=== PATIENT | female | born 1960 | race Caucasian/White ===

== ENCOUNTER → 2016-10-19 | Outpatient (CLI) | payer BC ==
[2016-06-17 11:52] VITALS: BP 145/65
[~2016-10-19] MED LIST: ASPI81TA2 PO; ATORVASTATIN CA80 MG PO; LEVO40CA PO; LISI-338 PO; METO25TA9 PO; OXYC-323 PO; PRAS10TA9 PO
--- NOTE | 2016-10-20 10:31 | RAD ---
PROCEDURE MR of the right ankle HISTORY Medial right ankle pain for 1 week. No known injury. TECHNIQUE Routine multiplanar sequences are obtained. COMPARISON None FINDINGS The peroneal tendons are intact. The anterior talofibular ligament is slightly irregular and bowed, compatible with scarring from prior injury. Calcaneofibular ligament also demonstrates some scarring as does the posterior talofibular ligament. No acute rupture. Anterior inferior tibiofibular ligament intact. Posterior tibial tendon demonstrates tendinosis at the navicular attachment with mild thickening and signal. No rupture. Minimal surrounding fluid. The flexor tendons appear intact with minimal fluid. Sprain/scarring of the medial deltoid ligament. Anterior tibial and extensor tendons are intact. Achilles tendon is intact. The plantar aponeurosis is only partially included but there is some thickening and mild low signal within the aponeurosis at the calcaneal origin compatible with mild scarring or chronic plantar fasciitis. Small subjacent enthesophyte. Subtalar joints are patent. Tarsal sinus intact. Talar dome intact. Trace fluid in the posterior subtalar joint. No large joint effusion. No bone lesion or acute fracture. Mild soft tissue edema around the ankle. IMPRESSION 1. Posterior tibial tendinosis or tenosynovitis. 2. Lateral ankle ligaments scarring compatible with prior injury. 3. Medial deltoid ligament sprain or scarring. 4. Mild chronic appearing plantar fasciitis. Electronically signed by: Kimani Hector MD (October 20, 2016 10:29:53)
== END | disposition home or self-care (01) ==
LOC: MRI 10:43
PROVIDERS: ATTEND Physician Assistant Medical
DX: M25.571 Pain in right ankle and joints of right foot (principal)
CPT/HCPCS: 73721

== ENCOUNTER → 2019-03-14 | Outpatient (CLI) | payer BC ==
[2016-06-17 11:52] VITALS: BP 145/65
[~2019-03-14] MED LIST changes: +ASPI-630 PO; -ASPI81TA2 PO; +METO-239 PO; -METO25TA9 PO; -OXYC-323 PO; +OXYC1TAB15 PO
--- NOTE | 2019-03-14 15:37 | RAD ---
EXAM: Brain MRI without contrast. HISTORY: Dizziness. TECHNIQUE: Multiplanar, multisequence magnetic resonance imaging of the brain was performed without contrast. COMPARISON: None. FINDINGS: There is no restricted diffusion to suggest acute or subacute infarction. There is no susceptibility effect to suggest hemorrhage. There is no mass effect or midline shift. There is no hydrocephalus. There are few scattered foci of T2/FLAIR hyperintensity within the cerebral white matter. There is mild cerebral volume loss. The orbits are unremarkable. There is moderate sphenoid sinus because of thickening. The mastoid air cells are clear. There are normal flow voids within the cerebral vessels. There is no suspicious calvarial lesion. IMPRESSION: 1. Few focal areas of T2/FLAIR hyperintensity within the cerebral white matter. This is most commonly due to chronic small vessel disease in patients of this age. The possibility that a small focus of signal change within the posterior left cerebral periventricular white matter is due to chronic demyelination is not excluded given the configuration and location of this lesion. 2. No acute intracranial finding. Electronically signed by: Yesi Niño MD (03/14/2019 3:35 PM) [id number]
== END | disposition home or self-care (01) ==
LOC: MRI 14:14
PROVIDERS: ATTEND Physician Assistant Medical
DX: R42 Dizziness and giddiness (principal)
CPT/HCPCS: 70551

== ENCOUNTER → 2021-01-25 | Outpatient (CLI) | payer BC ==
[2016-06-17 11:52] VITALS: BP 145/65
[~2021-01-25] MED LIST changes: -LISI-338 PO; +LISI-517 PO
--- NOTE | 2021-01-25 11:52 | KCIC ---
Exam Date: 01/25/2021 10:28 AM MRI LEFT LOWER EXTREMITY JOINT WITHOUT Indication: Reason: LESION OF BONE OF KNEE / Spl. Instructions: / History: Left knee trauma in recen t weeks. Pain is medial.. TECHNIQUE: Routine multiplanar MR imaging of the knee was performed without contrast. COMPARISON: Radiographs from January 18, 2021 FINDINGS: There is a horizontal tear involving the body and posterior horn of the medial meniscus extending to the intra-articular surface. The lateral meniscus is intact and within normal limits for age. The anterior cruciate ligament, posterior cruciate ligament, medial collateral ligament, and lateral collateral ligament complex are intact. Patellofemoral extensor mechanism and popliteus tendon are w ithin normal limits. Small full-thickness chondral defects are seen in the patellofemoral compartment with mild subchondra l degenerative marrow signal. Partial thickness chondral loss is seen in the medial compartment. Ca rtilage in lateral compartment is intact. Bone marrow demonstrates benign signal on all sequences. No acute fracture is seen. Small osteophyt es are noted. Physiologic joint fluid is present. There is no popliteal cyst. IMPRESSION: Medial meniscal tear as described. Mild degenerative changes noted, with small focal full-thickness chondral defects in the patellofemor al compartment. The questioned low-grade cartilaginous lesion in the distal femoral shaft seen on recent radiographs is not included in this exam. If further evaluation of this lesion is desired, MRI of the distal lef t femur can be performed. Electronically signed by: Cooper Weaver MD (01/25/2021 11:49 AM) [facility]
== END ==
LOC: KCIC MRI 10:13
PROVIDERS: ATTEND Physician Assistant Medical
DX: S83.242A Other tear of medial meniscus, current injury, left knee, initial encounter (principal); M17.12 Unilateral primary osteoarthritis, left knee; M89.9 Disorder of bone, unspecified; X58.XXXA Exposure to other specified factors, initial encounter; Y93.89 Activity, other specified; Y92.89 Other specified places as the place of occurrence of the external cause; Y99.8 Other external cause status
CPT/HCPCS: 73721